=== PATIENT | female | born 1965 | race Caucasian/White ===

== ENCOUNTER 2023-02-08 15:02 | Emergency (ER) | payer OTHER, SELFPAY ==
[2023-02-08 15:09] VITALS: BP 131/76; PULSE 78; RESP 16; TEMP 36.9; O2SAT 98; BMI 34.3
--- NOTE | 2023-02-08 15:28 | DI.US.S_ITS ---
PROCEDURE: US ABDOMEN LIMITED INDICATIONS: RUQ PAIN TECHNIQUE: Real-time focused scanning was performed of the abdomen, with image documentation. COMPARISON: None. FINDINGS: Liver is enlarged measuring 18.1 cm maximum dimension is diffusely increased in echogenicity with posterior acoustic attenuation. Gallbladder appears mildly contracted, which may be related to the timing of the most recent meal. No gallstones are seen. No pericholecystic fluid. Sonographic Singh sign is negative. No intrahepatic or extrahepatic biliary ductal dilatation is seen. Common bile duct measures 3.3 mm in diameter. IMPRESSION: 1. Hepatomegaly and increased hepatic echogenicity are seen, most commonly secondary to diffuse hepatic steatosis but other sources of hepatocellular disease cannot be excluded. Recommend clinical correlation. 2. Mildly contracted gallbladder without gallstones or signs of acute cholecystitis Approved by: Murali Wright M.D. on 02/08/2023 at 16:52
--- NOTE | 2023-02-08 15:29 | ED_ITS ---
HPI - Abdominal Pain General Chief Complaint: Abdominal Pain Stated Complaint: possible side effects of medication Time Seen by Provider: 02/08/23 15:18 Source: patient Mode of arrival: Ambulatory History of Present Illness HPI narrative: 58-year-old female nonsmoker with history of hypertension presents at the request of her primary care provider for evaluation of right upper quadrant pain for about the past 2 weeks. She states that it came on rather gradually and is moderate in intensity. She denies obvious provocation, palliation or radiation. She states that she is had no nausea or vomiting and denies any constipation or diarrhea. She denies shortness of breath or cough. She denies dysuria, frequency or urgency. She states that she had relatively recently had a change in the dosing of her lisinopril but otherwise medications and diet remained unchanged. She states that she called her primary care provider back in [place] who encouraged her to present to the emergency department for evaluation Related Data Allergies Allergy/AdvReac Type Severity Reaction Status Date / Time hydrocodone [From Vicodin] AdvReac nausea/vomi Verified 02/08/23 15:07 ting oxycodone [From Percocet] AdvReac nausea/vomi Verified 02/08/23 15:07 ting Review of Systems Review of Systems Narrative: GENERAL: Denies chills, fatigue, malaise, fever, sweats. HEENT: Denies sinus pain, ear pain, sore throat, difficulty swallowing, dizziness. RESPIRATORY: Denies dyspnea, cough, wheezing, hemoptysis, sputum. CARDIOVASCULAR: Denies chest pain, palpitations, orthopnea, edema, GASTROINTESTINAL: see HPI : Denies dysuria, frequency, incontinence, hematuria, urinary retention. MUSCULOSKELETAL: denies weakness, joint pain, or bony pain SKIN: Denies rash, skin lesions, or other NEUROLOGIC: Denies weakness, headache, numbness, change in speech, confusion, seizures, incoordination. PSYCHIATRIC: No concerning psychosocial issues. 12 point review of systems is negative except for those stated above Patient History Social History Smoking Status: Never smoker Smoking Status: Never smoker Substance Use Type: does not use Exam Narrative Exam Narrative: GENERAL: [58] year old patient appears stated age. Well-developed patient, in mild distress. HEAD: Atraumatic. Normocephalic. EYES: Pupils equal round and reactive. Extraocular motions intact. No scleral icterus. No injection or drainage. ENT: Nose without bleeding, purulent drainage. Throat without erythema, to nsillar hypertrophy or exudate. Airway patent. NECK: Trachea midline. Non tender CARDIOVASCULAR: Regular rate and rhythm without murmurs, gallops, or rubs. RESPIRATORY: Clear to auscultation. Breath sounds equal bilaterally. No wheezes, rales, or rhonchi. GASTROINTESTINAL: Abdomen soft, non-tender, nondistended. EXTREMITIES: No edema or joint tenderness. BACK: Nontender without deformity or crepitance. No flank tenderness. NEURO: AOx3. SKIN: No rash or erythema of visible areas Initial Vital Signs Initial Vital Signs: Vital Signs Temperature 98.4 F 02/08/23 15:09 Pulse Rate 78 02/08/23 15:09 Respiratory Rate 16 02/08/23 15:09 Blood Pressure 131/76 02/08/23 15:09 Pulse Oximetry 98 02/08/23 15:09 Oxygen Delivery Method Room Air 02/08/23 15:09 Course Orders Ordered: ED Orders 02/08/23 15:22 Urine Culture Stat Urine Microscopic Stat 02/08/23 15:28 US abdomen limited Stat 02/08/23 15:30 Complete Blood Count AUTO DIFF Stat Comprehensive Metabolic Panel Stat D Dimer Stat Lipase Stat 02/08/23 17:33 CT angio chest PE protocol Stat Discontinued Medications Sodium Chloride (Normal Saline 0.9%) 1,000 mls @ 1,000 mls/hr IV BOLUS ONE Stop: 02/08/23 16:28 Last Infusion: 02/08/23 17:42 Dose: 0 mls/hr Documented By: Admin: 02/08/23 16:13 Dose: 1,000 mls/hr Documented By: PAVAN Vital Signs Vital signs: Vital Signs - 8 hr 02/08/23 15:09 Temperature 98.4 F Pulse Rate 78 Respiratory Rate 16 Blood Pressure 131/76 Pulse Oximetry 98 Oxygen Delivery Method Room Air MDM - Abdominal Pain Lab Data 02/08/23 15:30 02/08/23 15:30 Labs: Lab Results 02/08/23 02/08/23 02/08/23 Range/Units 15:22 15:30 15:30 WBC 10.9 (4.5-11.0) X10^3/uL RBC 4.63 (4.0-5.2) X10^6/uL Hgb 13.9 (12.0-16.0) g/dL Hct 41.0 (36-46) % MCV 88.5 (80-100) fL MCH 30.1 (26-34) PG MCHC 34.0 (30-36) % RDW 13.9 (11.6-14.8) % Plt Count 368 (150-400) X10^3/uL Neut % (Auto) 60.5 (50-75) % Lymph % (Auto) 27.6 (25-40) % [place] % (Auto) 8.3 (3-14) % Eos % (Auto) 2.7 (2-4) % Baso % (Auto) 0.9 (0-2) % Neut # (Auto) 6600 (7472-2101) /uL Lymph # (Auto) 3000 (5274-4974) /uL [place] # (Auto) 900 (0-900) /uL Eos # (Auto) 300 (0-450) /uL Baso # (Auto) 100 (0-100) /uL D-Dimer (<500) ng/ml Sodium 138 (137-145) mmol/L Potassium 4.3 (3.4-5.1) mmol/L Chloride 102 (98-107) mmol/L Carbon Dioxide 29 (22-32) mmol/L BUN 18 H (7-17) mg/dL Creatinine 0.72 (0.52-1.04) mg/dL Estimated GFR > 60 (>60) mL/min BUN/Creatinine Ratio 25.0 H (6-22) Glucose 124 H (70-100) mg/dL Calcium 9.8 (8.4-10.2) mg/dL Total Bilirubin 0.5 (0.2-1.3) mg/dL AST 35 (14-36) IU/L ALT 38 H (<35) IU/L Alkaline Phosphatase 101 (38-126) U/L Total Protein 8.1 (6.3-8.2) g/dL Albumin 4.4 (3.5-5.0) g/dL Globulin 3.7 (1.7-4.1) g/dL Albumin/Globulin Ratio 1.2 (1.0-2.8) Lipase 215 (23-300) U/L Urine RBC 0-1/hpf (0-5/HPF) Urine WBC 5-10/hpf H (0-5/HPF) Ur Squamous Epith Cells 1-5 /hpf (0-5/HPF) Ur Transition Epith Cell 0-1/hpf (0-5/HPF) Urine Bacteria Occasional (0-1) (None) Ur Culture Indicated? Specimen cultured 02/08/23 Range/Units 15:30 WBC (4.5-11.0) X10^3/uL RBC (4.0-5.2) X10^6/uL Hgb (12.0-16.0) g/dL Hct (36-46) % MCV (80-100) fL MCH (26-34) PG MCHC (30-36) % RDW (11.6-14.8) % Plt Count (150-400) X10^3/uL Neut % (Auto) (50-75) % Lymph % (Auto) (25-40) % [place] % (Auto) (3-14) % Eos % (Auto) (2-4) % Baso % (Auto) (0-2) % Neut # (Auto) (8134-1027) /uL Lymph # (Auto) (3481-0156) /uL [place] # (Auto) (0-900) /uL Eos # (Auto) (0-450) /uL Baso # (Auto) (0-100) /uL D-Dimer 580 H (<500) ng/ml Sodium (137-145) mmol/L Potassium (3.4-5.1) mmol/L Chloride (98-107) mmol/L Carbon Dioxide (22-32) mmol/L BUN (7-17) mg/dL Creatinine (0.52-1.04) mg/dL Estimated GFR (>60) mL/min BUN/Creatinine Ratio (6-22) Glucose (70-100) mg/dL Calcium (8.4-10.2) mg/dL Total Bilirubin (0.2-1.3) mg/dL AST (14-36) IU/L ALT (<35) IU/L Alkaline Phosphatase (38-126) U/L Total Protein (6.3-8.2) g/dL Albumin (3.5-5.0) g/dL Globulin (1.7-4.1) g/dL Albumin/Globulin Ratio (1.0-2.8) Lipase (23-300) U/L Urine RBC (0-5/HPF) Urine WBC (0-5/HPF) Ur Squamous Epith Cells (0-5/HPF) Ur Transition Epith Cell (0-5/HPF) Urine Bacteria (None) Ur Culture Indicated? Point of care testing: Urine Dip Bedside Urine Glucose Negative Bedside Urine Bilirubin - Negative Bedside Urine Ketone - Negative Urine Specific [place] 1.015 Bedside Urine Occult Blood - Negative Bedside Urine pH 6.0 Bedside Urine Urobilinogen - Negative Bedside Urine Nitrite - Negative Bedside Urine Leukocytes +/- 15 Esterase MDM Narrative Medical decision making narrative: [58] year old patient presents with right upper quadrant pain x2 weeks Multiple etiologies for patient's symptoms considered including, but not limited to: [Gallbladder versus liver versus pancreas versus bowel versus, less likely possible PE due to recent long distance travel] Prior Charts reviewed in our EMR Primary Historian: patient Labs reviewed and interpreted by myself: No leukocytosis or left shift, no signs of anemia, electrolytes and LFTs largely unremarkable. Urine POC with minimal Leuk Esterase, otherwise normal. Patient with no UTI symptoms. Patient's symptoms improved over duration of stay with above-stated therapies. No signs of sepsis. Pain well controlled. Tolerating orals. NO evidence of GB / pancreatic disease. Subtle signs of possible UTI but patient denies dysuria, frequency or urgency. We discussed starting antibiotics now or waiting for cultures. Patient would very much like to wait for cultures. Findings and discharge diagnosis discussed with patient/family followed by verbalization of understanding Return precautions discussed with patient/family whom verbalize understanding of diagnosis and plan Discharge Plan Departure Patient Disposition: Home Clinical Impression: Right upper quadrant abdominal pain Instructions: DI for Abdominal Pain-Adult Activity Restrictions/Additional Instructions: *You have been diagnosed with [right upper quadrant pain. As we discussed your history and physical exam are reassuring. Labs and ultrasound would suggest a very low likelihood of any gallbladder, liver or pancreas involvement. CT scan of your chest demonstrates no blood clot. There are subtle abnormalities on your urine, per our discussion we will wait for the culture to come back in a day or 2 and if there is an indication for antibiotics we will call you. *What to do: *Please continue to take your regular medications as directed. *Please follow up with your primary care provider in 2-3 days, call for an appointment. Let them know you were seen in the Emergency Department and that we ask that you be seen in follow up. We will electronically transmit a record of today's note if your PCP is in our system *If you do not have a primary care provider please contact the [facility] Resource line at [phone]. They will ask some questions about your medical history and help get you set up with a doctor in the community. *Return to Emergency Department if you should have any new, worsening or concerning symptoms, such as [fever greater than 101 F, shaking chills, worsening pain, persistent vomiting or other bothersome symptoms] Stand Alone Forms: Patient Portal/API
[2023-02-08 15:43] LABS: Add Manual Diff / Slide Review NO; Basophils Absolute Auto 100 /uL (0-100); Basophils Percent Auto 0.9 % (0-2); Eosinophils Absolute Auto 300 /uL (0-450); Eosinophils Percent Auto 2.7 % (2-4); Hemoglobin 13.9 g/dL (12.0-16.0); Lymphocytes Absolute Auto 3000 /uL (1100-4500); Lymphocytes Percent Auto 27.6 % (25-40); Mean Corpuscular Hemoglobin 30.1 PG (26-34); Mean Corpuscular Volume 88.5 fL (80-100); Monocytes Absolute Auto 900 /uL (0-900); Monocytes Percent Auto 8.3 % (3-14); Neutrophils Absolute Auto 6600 /uL (1500-7000); Neutrophils Percent Auto 60.5 % (50-75); Platelet Count 368 X10^3/uL (150-400); Red Blood Cell Count 4.63 X10^6/uL (4.0-5.2); Red Cell Distribution Width 13.9 % (11.6-14.8); White Blood Cell Count 10.9 X10^3/uL (4.5-11.0)
[2023-02-08 15:54] LABS: Bacteria Urine Occasional (0-1); Culture Indicated Urine Specimen Cultured; RBC Urine 0-1/HPF (0-5/HPF); Squamous Epithelial Cell Urine 1-5 /HPF (0-5/HPF); Transitional Epi Cells Urine 0-1/HPF (0-5/HPF); WBC Urine 5-10/HPF (0-5/HPF)
[2023-02-08 16:05] LABS: Alanine Aminotransferase 38 IU/L (<35); Albumin 4.4 g/dL (3.5-5.0); Albumin Globulin Ratio 1.2 (1.0-2.8); Alkaline Phosphatase 101 U/L (38-126); Aspartate Aminotransferase 35 IU/L (14-36); Bilirubin Total 0.5 mg/dL (0.2-1.3); Blood Urea Nitrogen 18 mg/dL (7-17); Calcium 9.8 mg/dL (8.4-10.2); Carbon Dioxide 29 mmol/L (22-32); Chloride 102 mmol/L (98-107); Estimated Glomerular Filt Rate > 60 mL/min (>60); Globulin 3.7 g/dL (1.7-4.1); Glucose 124 mg/dL (70-100); HEMOLYSIS 19 (0-50); Lipase 215 U/L (23-300); Potassium 4.3 mmol/L (3.4-5.1); Sodium 138 mmol/L (137-145); Total Protein 8.1 g/dL (6.3-8.2)
[2023-02-08] MEDS: SODIUM CHLORIDE 0.9% 1,000 ML 1000 ML IV (16:13)
[2023-02-08 16:24] LABS: D Dimer 580 ng/ml (<500)
--- NOTE | 2023-02-08 17:33 | DI.CT.S_ITS ---
PROCEDURE: CT ANGIO CHEST PE PROTOCOL INDICATIONS: right lower chest pain, travel, elevated Dimer TECHNIQUE: After the administration of intravenous contrast, 2 mm thick sections acquired from the pulmonary apices to the posterior costophrenic angles. 3-dimensional maximum intensity projection (MIP) coronal and sagittal reformats were then acquired through the thorax. For radiation dose reduction, the following was used: automated exposure control, adjustment of mA and/or kV according to patient size. COMPARISON: None. FINDINGS: Image quality: Excellent. Pulmonary arteries: Pulmonary arteries are normal in size, and demonstrate no intraluminal filling defects to suggest central pulmonary embolism. Lungs and pleura: Punctate pulmonary nodule in the right upper lobe, (5/127). Left lower lobe fissural nodule measuring 0.5 cm, (5/126). Bibasilar atelectasis. No pleural effusions or pneumothorax. Central and peripheral airways are patent. Mediastinum: Heart size is normal, without pericardial effusion. No mediastinal or hilar adenopathy. Thoracic aorta is normal in caliber and enhancement. Esophagus is normal in caliber, without hiatal hernia. Bones and chest wall: No suspicious bony lesions. Ribs and thoracic spine appear intact throughout. Right thyroid nodule measuring 0.7 cm. Left thyroid nodule measuring 1 cm. No axillary or supraclavicular adenopathy. Abdomen: Hepatic steatosis. IMPRESSION: 1. No pulmonary embolism. 2. Bibasilar atelectasis. 3. Left fissural pulmonary nodule measuring 0.5 cm. 4. Hepatic steatosis. Dictated by: Cesar Billy M.D. on 02/08/2023 at 18:55 Approved by: Cesar Billy M.D. on 02/08/2023 at 19:09
[2023-02-08 19:30] VITALS: BP 139/71; PULSE 68; RESP 16; O2SAT 94
== END 2023-02-08 19:32 | disposition home or self-care (01) ==
PROVIDERS: Emergency Provider Emergency Medicine
DX: R10.11 Right upper quadrant pain (principal)
CPT/HCPCS: 36415; 71275; 76705; 80053; 81003; 81015; 83690; 85025; 85379; 87086; 99284; Q9967